=== PATIENT | male | born 2005 | race Two or more races ===

== ENCOUNTER 2023-05-28 18:16 | Emergency (ER) | payer SELFPAY ==
[2023-05-28 18:19] VITALS: BP 153/96; PULSE 72; RESP 16; TEMP 36.6; O2SAT 97; BMI 23.5
--- NOTE | 2023-05-28 18:25 | XR_ITS ---
The [address] [address] Patient Name: ILA FARRIS MRN: [id number] date: 2005 Sex: M Assigned Patient Location: ER Current Patient Location: Accession/Order Number: [id number] Exam Date: 05/28/2023 18:48 Report Date: 05/28/2023 20:05 At the request of: TOBY RITCHIE Procedure: XR acute abdomen series XR acute abdomen series 05/28/2023 6:48 PM EST CLINICAL INDICATION: Chronic abdominal pain COMPARISON: None. TECHNIQUE: Upright and supine AP views of the chest, abdomen and pelvis. FINDINGS: There are no tubes or implants noted. The cardiomediastinal silhouette and pulmonary vasculature are within normal limits. The lungs are clear. No pneumothorax or pleural effusion. Osseous structures and soft tissues are within normal limits. No definite free intraperitoneal air, portal venous gas or pneumatosis intestinalis. No dilated small bowel loops are identified. Stool filled colon and rectum. Moderate to large stool burden. The bones and soft tissues are unremarkable. XR/XR acute abdomen series IMPRESSION: No acute cardiopulmonary abnormality. Stool filled colon and rectum, moderate to large stool burden. Electronically authenticated by: CHAZ ZHAO Date: 05/28/2023 20:05
--- NOTE | 2023-05-28 18:26 | ED_ITS ---
HPI - Abdominal Pain General Chief Complaint: Abdominal Pain Stated Complaint: Abdominal Pain Time Seen by Provider: 05/28/23 18:19 Source: patient Mode of arrival: walk-in History of Present Illness HPI narrative: Patient is a 17-year-old male who is Vietnamese-speaking only presents to the emergency department for 2-month history of pain in the umbilicus. Patient states he has not been seen anywhere else for these symptoms. He reports pain is worse with eating. He has had no fevers, chills, nausea, vomiting, diarrhea. He states he had a small bowel movement just a little while ago. No urinary symptoms. He states occasionally he has congestion. Patient's entire history was obtained with the assistance of a Vietnamese american sign language interpreter Related Data Previous Rx's Medication Instructions Recorded hyoscyamine sulfate 0.125 mg 0.125 mg PO Q6H PRN abdominal pain 05/28/23 tablet (Levsin) #12 tabs magnesium citrate (Citrate of 296 ml PO DAILY constipation #296 05/28/23 Magnesia oral) mL ondansetron 4 mg disintegrating 4 mg PO Q6H PRN nausea and 05/28/23 tablet vomiting #12 tabs Allergies Allergy/AdvReac Type Severity Reaction Status Date / Time No Known Drug Allergies Allergy Verified 05/28/23 18:24 Review of Systems ROS Constitutional Denies: fever or chills Ears, nose, mouth, and throat Reports: nasal congestion; Denies: throat pain Cardiovascular Denies: chest pain Respiratory Denies: shortness of breath or cough Gastrointestinal Reports: abdominal pain; Denies: nausea, vomiting or diarrhea Genitourinary Denies: painful urination Musculoskeletal Denies: back pain Integumentary/Breast Denies: rash Neurological Denies: headache Endocrine Denies: excessive urination Exam Narrative Exam Narrative: Gen.: Awake, alert, in no distress Head: Normocephalic, atraumatic ENT: Moist mucous membranes Respiratory: No respiratory distress, lungs clear bilaterally Cardio: Regular rate and rhythm Gastrointestinal: Abdomen is soft, nondistended and Mildly tender to palpation in the umbilicus and suprapubic abdomen with no guarding or rebound. No McBurne y's point tenderness Extremities: Moves extremities equally Psych: Normal mood and affect Neuro: No focal neuro deficit Skin: Warm, dry, intact Constitutional Vital Signs, click to edit/add: Last Vital Signs Temp 97.9 F 05/28/23 18:19 Pulse 72 05/28/23 18:19 Resp 16 05/28/23 18:19 BP 153/96 H 05/28/23 18:19 Pulse Ox 97 05/28/23 18:19 O2 Del Method Room Air 05/28/23 18:19 Course Vital Signs Vital signs: Vital Signs Temperature 97.9 F 05/28/23 18:19 Pulse Rate 72 05/28/23 18:19 Respiratory Rate 16 05/28/23 18:19 Blood Pressure 153/96 H 05/28/23 18:19 Pulse Oximetry 97 05/28/23 18:19 Oxygen Delivery Method Room Air 05/28/23 18:19 Temperature 97.9 F 05/28/23 18:19 Pulse Rate 72 05/28/23 18:19 Respiratory Rate 16 05/28/23 18:19 Blood Pressure 153/96 H 05/28/23 18:19 Pulse Oximetry 97 05/28/23 18:19 Oxygen Delivery Method Room Air 05/28/23 18:19 MDM - Abdominal Pain MDM Narrative Medical decision making narrative: Patient with normal blood work, abdomen soft and benign in the ER with stable vital signs. Treated with Levsin for discomfort. Abdominal x-rays with moderate constipation. Based on the duration of symptoms, patient will be treated with magnesium citrate, Zofran, Levsin for home. He was provided copies of all of his lab results and referred to local primary care. Return to the emergency department if symptoms change or worsen. All results, imaging results and discharge information were shared with the patient with the use of Vietnamese american sign language interpreter service. Medical Records Attestation: I reviewed the patient's medical records. Lab Data Attestation: I reviewed the patient's lab results. Labs: Lab Results 05/28/23 05/28/23 Range/Units 18:29 18:35 WBC 6.5 (4.0-11.0) 10^3/uL RBC 5.62 (4.70-6.10) 10^6/uL Hgb 16.5 (14.0-18.0) g/dL Hct 50.2 (42.0-54.0) % MCV 89.3 (80.0-94.0) fL MCH 29.4 (25.9-34.0) pg MCHC 32.9 (29.9-35.2) g/dL RDW 12.3 (11.0-15.0) % Plt Count 244 (150-450) 10^3/uL MPV 8.7 L (9.5-13.5) fL Neut % (Auto) 54.8 (43.0-75.0) % Lymph % (Auto) 33.7 (20.5-60.0) % George % (Auto) 8.8 (1.7-12.0) % Eos % (Auto) 2.2 (0.9-7.0) % Baso % (Auto) 0.2 (0.2-2.0) % Neut # (Auto) 3.5 (1.4-6.5) 10^3/uL Lymph # (Auto) 2.2 (1.2-3.8) 10^3/uL George # (Auto) 0.6 (0.3-0.8) 10^3/uL Eos # (Auto) 0.1 (0.0-0.7) 10^3/uL Baso # (Auto) 0.0 (0.0-0.1) 10^3/uL Abs Immat Gran (auto) 0.02 (0.00-0.03) 10^3/uL Imm/Tot Granulo (auto) 0.3 (0.0-0.5) % Sodium 143 (136-145) mmol/L Potassium 4.0 (3.5-5.1) mmol/L Chloride 105 (98-107) mmol/L Carbon Dioxide 27.7 (21.0-32.0) mmol/L Anion Gap 14.3 BUN 19.0 (6.4-19.3) mg/dL Creatinine 1.28 (0.70-1.30) mg/dL Est GFR ( Amer) >60 (>=60) Est GFR (Non-Af Amer) >60 (>=60) BUN/Creatinine Ratio 14.8 Glucose 96 (74-106) mg/dL Calcium 9.1 (8.5-10.1) mg/dL Total Bilirubin 0.4 (0.2-1.0) mg/dL AST 13 L (15-37) U/L ALT 12 L (16-63) U/L Alkaline Phosphatase 104 (46-116) U/L Total Protein 8.2 (6.4-8.2) g/dL Albumin 4.1 (3.4-5.0) g/dL Globulin 4.1 g/dL Albumin/Globulin Ratio 1.0 Lipase 23.0 (16.0-77.0) U/L Urine Color Yellow (YELLOW) Urine Clarity Clear (CLEAR) Urine pH 6.5 (5.0-9.0) Ur Specific Mcdowell 1.025 (1.005-1.025) Urine Protein Negative (NEG/TRACE) mg/dL Urine Glucose (UA) Negative (NEGATIVE) mg/dL Urine Ketones Negative (NEGATIVE) mg/dL Urine Occult Blood Negative (NEGATIVE) Urine Nitrite Negative (NEGATIVE) Urine Bilirubin Negative (NEGATIVE) Urine Urobilinogen 1.0 (0.2-1.0) EU/dL Ur Leukocyte Esterase Negative (NEGATIVE) Monoscreen Negative (NEGATIVE) Imaging Data Abdominal x-ray: Attestation: I have reviewed the pertinent imaging results. Radiologist's impression: ITS Impressions Chest/Abdomen X-ray 05/28/23 18:25 IMPRESSION: No acute cardiopulmonary abnormality. Stool filled colon and rectum, moderate to large stool burden. Electronically authenticated by: CHAZ ZHAO Date: 05/28/2023 20:05 Discharge Plan Discharge Chief Complaint: Abdominal Pain Clinical Impression: Abdominal pain, Constipation Patient Disposition: Home, Self-Care Time of Disposition Decision: 19:06 Condition: Good Prescriptions / Home Meds: New magnesium citrate [Citrate of Magnesia] Solution 296 ml PO DAILY Qty: 296 0RF Rx Instructions: Take half of the bottle with 8 oz of water, take the other half after 1 hour with 8 oz of water hyoscyamine sulfate [Levsin] 0.125 mg tablet 0.125 mg PO Q6H PRN (Reason: abdominal pain) Qty: 12 0RF ondansetron 4 mg tablet,disintegrating 4 mg PO Q6H PRN (Reason: nausea and vomiting) Qty: 12 0RF Print Language: Vietnamese Instructions: Constipation (ED), High Fiber Diet (ED), Acute Abdominal Pain (ED) Stand Alone Forms: Portal Instructions Referrals: Physician,Non-Staff, MD [Primary Care Provider] - 1 week Discharge Date/Time: 05/28/23 19:25
[2023-05-28 18:45] LABS: Basophils Percent Auto 0.2 % (0.2-2.0); Eosinophils Absolute Auto 0.1 10^3/uL (0.0-0.7); Eosinophils Percent Auto 2.2 % (0.9-7.0); Hematocrit 50.2 % (42.0-54.0); Hemoglobin 16.5 g/dL (14.0-18.0); Immature Granulocytes Abs Auto 0.02 10^3/uL (0.00-0.03); Immature Granulocytes Pct Auto 0.3 % (0.0-0.5); Lymphocytes Absolute Auto 2.2 10^3/uL (1.2-3.8); Lymphocytes Percent Auto 33.7 % (20.5-60.0); Mean Corpuscular HGB Conc 32.9 g/dL (29.9-35.2); Mean Corpuscular Hemoglobin 29.4 pg (25.9-34.0); Mean Corpuscular Volume 89.3 fL (80.0-94.0); Mean Platelet Volume 8.7 fL (9.5-13.5); Monocytes Absolute Auto 0.6 10^3/uL (0.3-0.8); Monocytes Percent Auto 8.8 % (1.7-12.0); Neutrophils Absolute Auto 3.5 10^3/uL (1.4-6.5); Neutrophils Percent Auto 54.8 % (43.0-75.0); Platelet Count 244 10^3/uL (150-450); Red Blood Count 5.62 10^6/uL (4.70-6.10); Red Cell Distribution Width 12.3 % (11.0-15.0); White Blood Count 6.5 10^3/uL (4.0-11.0)
[2023-05-28 18:46] LABS: Bilirubin Urine NEGATIVE (NEGATIVE); Blood Urine NEGATIVE (NEGATIVE); Clarity Urine CLEAR (CLEAR); Color Urine YELLOW (YELLOW); Glucose Urine UA NEGATIVE (NEGATIVE); Ketones Urine NEGATIVE (NEGATIVE); Leukocyte Esterase Urine NEGATIVE (NEGATIVE); Nitrite Urine NEGATIVE (NEGATIVE); Protein Urine NEGATIVE (NEG/TRACE); Specific Gravity Urine 1.025 (1.005-1.025); Urine Microscopic Indicated NO; pH Urine 6.5 (5.0-9.0)
[2023-05-28 18:55] LABS: Alanine Aminotransferase 12 U/L (16-63); Albumin Level 4.1 g/dL (3.4-5.0); Alkaline Phosphatase 104 U/L (46-116); Anion Gap 14.3; Aspartate Amino Transferase 13 U/L (15-37); BUN Creatinine Ratio 14.8; Bilirubin Total 0.4 mg/dL (0.2-1.0); Calcium 9.1 mg/dL (8.5-10.1); Carbon Dioxide 27.7 mmol/L (21.0-32.0); Chloride 105 mmol/L (98-107); Estimated GFR (African America >60 (>=60); Estimated GFR (Non-African Ame >60 (>=60); Globulin 4.1 g/dL; Glucose 96 mg/dL (74-106); Sodium 143 mmol/L (136-145); Total Protein 8.2 g/dL (6.4-8.2)
[2023-05-28 18:57] LABS: Mono Screen NEGATIVE (NEGATIVE)
[2023-05-28] MEDS: HYOSCYAMINE SULFATE 0.125 MG TAB.SUBL SL (19:23)
--- NOTE | 2023-05-28 19:25 | PC.NURSE ---
Using bedside channel marketing coordinator, explained discharge paperwork with pt. All questions answered. Scripts provided. Pt ambulated off unit in stable condition.
== END 2023-05-28 19:25 | disposition home or self-care (01) ==
PROVIDERS: Physician Assistant; Emergency Provider Emergency Medicine
DX: K59.00 Constipation, unspecified (principal); R10.9 Unspecified abdominal pain
CPT/HCPCS: 36415; 74022; 80053; 81003; 83690; 85025; 86308; 99285